=== PATIENT | male | born 1945 | race Asian ===

== ENCOUNTER 2017-12-17 17:01 | Emergency (ER) | payer OTHER ==
[~2017-12-17] VITALS: Ht 160 cm; Wt 50.3 kg
[2017-12-17 17:09] VITALS: BP 146/92
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
--- NOTE | 2017-12-17 17:53 | NUR ---
XRAY AT BEDSIDE
[2017-12-17 18:20] LABS: BASOPHILS # (AUTO) 0.2 K/uL (0.00-0.22); BASOPHILS % (AUTO) 2.2 % (0.0-2.0); EOSINOPHILS # (AUTO) 0.6 K/uL (0-0.4); EOSINOPHILS % (AUTO) 7.3 % (0.0-4.0); HEMATOCRIT 36.8 % (36-52); HEMOGLOBIN 12.5 g/dL (12.0-18.0); LYMPHOCYTES % (AUTO) 23.4 % (20.5-51.1); MEAN CORPUSCULAR HEMOGLOBIN 32 pg (27-31); MEAN CORPUSCULAR HGB CONC 34 g/dL (33-37); MEAN CORPUSCULAR VOLUME 94 fL (80-94); MONOCYTES # (AUTO) 0.9 K/uL (0.8-1.0); MONOCYTES % (AUTO) 10.9 % (1.7-9.3); NEUTROPHILS # (AUTO) 4.9 K/uL (1.8-7.7); NEUTROPHILS % (AUTO) 56.2 % (42.2-75.2); PLATELET COUNT (AUTO) 217 K/uL (140-450); RED BLOOD CELL COUNT(AUTO) 3.92 MIL/uL (4.20-6.10); RED CELL DISTRIBUTION WIDTH 13.3 % (11.6-13.7); WHITE BLOOD COUNT (AUTO) 8.6 K/uL (4.8-10.8)
[2017-12-17 18:23] LABS: ANION GAP 13.5 (8-16); CARBON DIOXIDE 24.5 mmol/L (21-32); CHLORIDE 105 mmol/L (98-107); CREATININE 1.9 mg/dL (0.7-1.3); GLUCOSE 187 mg/dL (74-106); SODIUM SERUM 139 mmol/L (136-145); UREA NITROGEN, BLOOD 31 mg/dL (7-18)
--- NOTE | 2017-12-17 18:32 | NUR ---
PT TAKEN TO CT
--- NOTE | 2017-12-17 19:10 | NUR ---
REPORT GIVEN TO GIBSON ESTRADA
[2017-12-17 22:15] VITALS: BP 123/70
== END 2017-12-17 22:17 | disposition home or self-care (01) ==
LOC: MED 17:01
DX: S16.1XXA Strain of muscle, fascia and tendon at neck level, initial encounter (principal); S39.91XA Unspecified injury of abdomen, initial encounter; S29.9XXA Unspecified injury of thorax, initial encounter; S09.90XA Unspecified injury of head, initial encounter; S37.009A Unspecified injury of unspecified kidney, initial encounter; I61.9 Nontraumatic intracerebral hemorrhage, unspecified; V49.49XA Driver injured in collision with other motor vehicles in traffic accident, initial encounter; R51 Headache; Y93.89 Activity, other specified; Y92.488 Other paved roadways as the place of occurrence of the external cause; Y99.8 Other external cause status
CPT/HCPCS: 36415; 70450; 71250; 72125; 72128; 72131; 73562; 73590; 74176; 80048; 84484; 85025; 86886; 86900; 86901; 93005; 99285; Q0092

== ENCOUNTER 2019-04-26 07:53 | Day surgery (SDC) | payer OTHER ==
[2019-04-26] MEDS ORDERED: MIDAZOLAM 2 MG/2 ML VIAL ONE (09:36)
[2019-04-26] MEDS ORDERED: fentaNYL 0.05 MG/ML VIAL ONE (09:36)
[2019-04-26] MEDS ORDERED: LIDOCAINE 2% 100 MG/5 ML UJET TP ONE (09:36)
== END 2019-04-26 10:30 | disposition home or self-care (01) ==
LOC: MOR 07:53 → MMU 07:53 → MOR 10:30
PROVIDERS: ATTEND Internal Medicine Gastroenterology
DX: K20.9 Esophagitis, unspecified (principal); K44.9 Diaphragmatic hernia without obstruction or gangrene; R11.2 Nausea with vomiting, unspecified; Z87.891 Personal history of nicotine dependence
CPT/HCPCS: 36415; 43239; 86677; J2250; J3010